=== PATIENT | male | born 1940 | race Caucasian/White ===

== ENCOUNTER 2023-12-17 07:39 | Day surgery (SDC) | payer MEDICARE, OTHER, SELFPAY | END 2023-12-17 10:53 | disposition home or self-care (01) | LOC: CATH 07:39 | PROVIDERS: ATTENDING PHYSICIAN Internal Medicine Cardiovascular Disease; FAMILY PHYSICIAN Nurse Practitioner; OTHER PHYSICIAN Internal Medicine | DX: I08.3 Combined rheumatic disorders of mitral, aortic and tricuspid valves (principal); I70.0 Atherosclerosis of aorta; Z95.3 Presence of xenogenic heart valve | CPT/HCPCS: 93312; 93320; 93325 ==

== ENCOUNTER → 2024-02-11 11:33 | Outpatient (REF) | payer MEDICARE, OTHER, SELFPAY ==
[2024-02-11 12:47] LABS: Blood Urea Nitrogen 38 mg/dl (9-20); Calcium 9.9 mg/dl (8.4-10.2); Carbon Dioxide 34 mmol/L (22-30); Chloride 97 mmol/L (98-107); Glucose 76 mg/dl (70-99); Potassium 4.4 mmol/L (3.5-5.1); Sodium 142 mmol/L (135-145); eGFR > 60.00
== END ==
LOC: REG 11:33
PROVIDERS: ATTENDING PHYSICIAN Internal Medicine Interventional Cardiology; FAMILY PHYSICIAN Nurse Practitioner
DX: I10 Essential (primary) hypertension (principal)
CPT/HCPCS: 36415; 80048

== ENCOUNTER → 2024-02-12 08:47 | Outpatient (REF) | payer MEDICARE, OTHER, SELFPAY | LOC: RAD 08:47 | PROVIDERS: ATTENDING PHYSICIAN Internal Medicine Interventional Cardiology; FAMILY PHYSICIAN Nurse Practitioner; OTHER PHYSICIAN Internal Medicine; REFERRING PHYSICIAN Nurse Practitioner Acute Care | DX: I36.1 Nonrheumatic tricuspid (valve) insufficiency (principal); I51.3 Intracardiac thrombosis, not elsewhere classified; I34.0 Nonrheumatic mitral (valve) insufficiency | CPT/HCPCS: 75572; Q9967 ==

== ENCOUNTER 2024-03-23 05:25 | Inpatient (IN) | payer MEDICARE, OTHER, SELFPAY ==
[2024-03-14 12:46] LABS: % Basophils 0.8 % (0-2); % Eosinophils 3.6 % (0-6); % Immature Granulocytes 0.2 % (0-0.5); % Lymphocytes 17.9 % (20.5-51.1); % Neutrophils 68.5 % (42.2-75.2); Absolute Basophils 0.1 10^3/uL (0-0.2); Absolute Eosinophils 0.2 10^3/uL (0-0.7); Absolute Lymphocytes 1.2 10^3/uL (1.2-3.4); Absolute Monocytes 0.6 10^3/uL (0.1-0.6); Absolute Neutrophils 4.6 10^3/uL (1.4-6.5); Hematocrit 43.8 % (39.0-52.0); Mean Corpuscular Hgb 28.1 pg (27.0-31.0); Nucleated Red Blood Cells % 0 % (-); Platelet Count 174 10^3/uL (130-400); Red Blood Cell Count 4.98 10^6/uL (4.70-6.10); Red Cell Dist. Width 15.9 % (11.5-14.5); White Blood Cell Count 6.7 10^3/uL (4.8-10.8)
[2024-03-14 12:49] LABS: INR 1.23; PT 15.8 Sec (11.4-14.6)
[2024-03-14 12:51] LABS: APTT 37.7 Sec (23.4-35.0)
[2024-03-14 13:16] LABS: ALT (SGPT) 17 U/L (0-50); AST (SGOT) 23 U/L (17-59); Albumin 4.3 g/dl (3.5-5.0); Alkaline Phosphatase 121 U/L (38-126); Blood Urea Nitrogen 33 mg/dl (9-20); Calcium 9.8 mg/dl (8.4-10.2); Carbon Dioxide 32 mmol/L (22-30); Chloride 99 mmol/L (98-107); Direct Bilirubin 0.1 mg/dl (0.0-0.4); Glucose 102 mg/dl (70-99); Potassium 4.5 mmol/L (3.5-5.1); Sodium 140 mmol/L (135-145); Total Bilirubin 0.9 mg/dl (0.2-1.3); Total Protein 6.9 g/dl (6.3-8.2); eGFR > 60.00
[2024-03-14 13:33] LABS: Urine Albumin Negative (Neg - Trace); Urine Bilirubin Negative (Negative); Urine Character Clear (Clear); Urine Color Yellow; Urine Glucose Negative (Negative); Urine Ketone Negative (Negative); Urine Leukocyte Trace (Negative); Urine Nitrite Negative (Negative); Urine Occult Blood Negative (Negative); Urine Urobilinogen Negative (Neg - 1+)
[2024-03-14 13:37] VITALS: BMI 33.6
[2024-03-14 13:56] LABS: Glycohemoglobin (HgbA1c) 5.5 % (4.0-5.6)
[2024-03-14 13:56] LABS: Urine Red Blood Cell 0-2 /HPF (0-2)
--- NOTE | 2024-03-14 14:16 | CM ---
Chart reviewed. Met with the patient and son in PAT. Patient is independent of ADLS, lives with his in a [address], 1 [facility], ambulates with a RW and SPC. Reviewed preoperative and postoperative instructions and restrictions, along with showering
guidelines. Gave patient 2 soaps. Patient is agreeable to a home visit by CT Transitional RN. Plan is for the patient to return home with CT Transitional RN.
[2024-03-23] VITALS (16 sets, daily range): BP systolic 103–153; BP diastolic 66–91; BMI 32.8
[2024-03-23] MEDS: BACTROBAN 2% OINTMENT 1 APPLIC NASAL (06:39)
[2024-03-23 08:45] LABS: ACT-LR - POC 274 Seconds (116-155)
[2024-03-23 08:53] LABS: ACT-LR - POC 281 Seconds (116-155)
[2024-03-23 09:04] LABS: ACT-LR - POC 294 Seconds (116-155)
[2024-03-23 09:13] LABS: ACT-LR - POC 322 Seconds (116-155)
[2024-03-23 09:42] LABS: ACT-LR - POC 244 Seconds (116-155)
[2024-03-23 09:51] LABS: ACT-LR - POC 289 Seconds (116-155)
[2024-03-23 10:01] LABS: ACT-LR - POC 260 Seconds (116-155)
[2024-03-23 10:06] LABS: ACT-LR - POC 261 Seconds (116-155)
[2024-03-23 10:15] LABS: ACT-LR - POC 302 Seconds (116-155)
[2024-03-23 10:46] LABS: ACT-LR - POC 292 Seconds (116-155)
[2024-03-23 10:56] LABS: ACT-LR - POC 353 Seconds (116-155)
--- NOTE | 2024-03-23 12:11 | PTCARENOTE ---
Received pt from laborer rags team at 1205 pm, sleepy but arousable to voice. V paced on monitor 70's. Rt radial A line transducing, line leveled, recalibrated, and flushed. Rt groin site c,d,i. dp pulses via doppler, Will monitor.
--- NOTE | 2024-03-23 12:11 | ITS.CL.PN ---
Grinder Dresser - Procedure Note
Procedure
Procedure Note:
TRANSCATHETER EDGE - TO - EDGE MITRAL VALVE REPAIR (COLIN)/MITRACLIP REPORT
Date: 03/23/2024
Referring: Aleksandr Schwartz M.D.
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
Procedure(s): Transcatheter mitral valve edge to edge repair/MitraClip using one NTW and one XTW MitraClip.
Preprocedure MR severity: Severe, 3.5+.
Postprocedure MR severity: Mild, 1+.
Operators: Parish Ross DO, Evangelina Ibarra M.D.
ARGENIS Family Practice Nurse Practitioner(s): Eduardo Mcneill M.D., Ph.D.
Anesthesia: GETA provided by the anesthesia staff.
Estimated Blood Loss: 80 cc.
Complications: None.
Condition: Stable.
PROCEDURE:
The patient was brought to the cardiac catheterization lab and anesthetized by the anesthesiology staff. A transesophageal probe was placed and preliminary echocardiography was performed. The patient was prepped and draped in standard sterile
fashion. The right common femoral vein was accessed using a modified Seldinger technique with a micropuncture kit under ultrasound guidance. The vein was dilated with an 8 Italian dilator then preclosed with a Perclose percutaneous suture. And 8
Italian sheath was placed in the femoral vein. Heparin 8000 units was given
The [employer] VersaCross system was prepped on the back table. The J-wire for the versa cross was advanced into the superior vena cava and the 8 Italian sheath was removed. The transseptal sheath was advanced over the wire and into the superior vena
cava. The J-wire was removed and the versa cross wire was advanced to the distal tip of the sheath, but remained within the dilator. This sheath was positioned in the interatrial septum with confirmed position on ARGENIS. Transseptal puncture was
performed using electrocautery through the wire and the sheath was advanced into the left atrium. ACT was confirmed above 250 seconds. Oxygen saturation confirmed presence in the left atrium.
The MitraClip steerable sheath was prepped on the back table. The [place] sheath was withdrawn keeping the versa cross wire in the left atrium. The femoral vein was serially dilated and the steerable sheath was advanced through the vein, easily
crossing into the left atrium. Once we had satisfactory purchase of the sheath inside the left atrium the dilator and versa cross wire were removed and the steerable sheath was completely de-aired and flushed.
A(n) XTW MitraClip Delivery System was prepped on the back table. The clip was advanced through the steerable sheath and into the left atrium. The clip was oriented and advanced subvalvular to the mitral valve. In spite of multiple attempts, we
were unable to adequately grasp both the anterior and posterior leaflets with some rolling of the posterior leaflet. We felt that the leaflet may be too short for an XTW MitraClip. The XTW clip was replaced with an NTW clip and we reapproached the
valve.
The NTW was advanced subvalvular, lateral to the original XTW clip position. The NTW clip was pulled back with satisfactory position of the anterior and posterior leaflets on the clip arms. Once we were satisfied with with position, the grippers
were lowered and the clip arms were tightened to 60 degrees. This demonstrated good position and clip stability. The clip was fully closed demonstrating excellent sales and events coordinator of both the anterior and posterior leaflet. Mitral regurgitation remained
moderate to severe on the medial aspect of the valve, but we were most satisfied with the ability of the clip to graft the posterior leaflet. Transvalvular gradient = 2 mmHg. We were satisfied with these preliminary results, recognizing that we
would likely need a second MitraClip and the NTW clip was deployed. The delivery system was removed from the steerable sheath.
The mitral valve was reevaluated. Mitral valve regurgitation was now graded at moderate to severe, with eccentric mitral regurgitation immediately medial to the NTW clip.
Initially, we considered placing an NT clip in this area, however we opted to reattempt the XTW clip as it had already been opened and the mitral valve had not been stabilized. The XTW clip was advanced through the steerable sheath and into the
left atrium. The clip was oriented and advanced into the subvalvular apparatus, medial to the NTW clip. We took meticulous care to make sure that there was no significant contact between the NTW and XTW clips. After the clip was subvalvular, we
released some of the M knob tension to allow the XTW clip to abut the NTW clip. The clip was pulled back to allow the anterior and posterior leaflets to fall into the clip arms, which they were now able to do with relative ease. Once we were
satisfied with the clip position, the grippers were lowered and the clip arms were tightened to 60 degrees. This demonstrated good position and clip stability. Echo interrogation showed that the clip was directly in the mitral regurgitation jet.
The clip was fully closed demonstrating good sales and events coordinator of both the anterior and posterior leaflet with a significant reduction in mitral regurgitation.
Echocardiographic interrogation of the mitral valve showed a mean gradient of 4 mmHg with a valve area of 2.7-2.8 cm�. At this point, we were satisfied with this clip position. The XTW clip was released. The delivery system was removed from the
steerable sheath. The mitral valve was reevaluated, now showing mild, eccentric mitral valve regurgitation with a mean gradient of 5 mmHg.
At this point, we were satisfied with our results. The steerable sheath was withdrawn into the right atrium, then negative tension was applied to straighten the catheter. The steerable sheath was withdrawn and the Perclose percutaneous suture was
tightened with good hemostasis.
The patient tolerated the procedure well, was brought out of anesthesia and transferred to the CVICU in stable condition.
IMPLANT(S)/POSITION:
1. NTW MitraClip on lateral A2/P2.
2. XTW MitraClip on central A2/P2.
RADIATION:
Dose (mGy): 1036.94
DAP (cm2.Gy): 130.37
Fluoroscopy time (minutes): 32.6
VALVE HEMODYNAMICS:
Preoperative
MR severity (0-4): 3.5+
Transmitral gradient (mmHg): 2
Postoperative
MR severity (0-4): 1+
Transmitral gradient (mmHg): 5
CONCLUSIONS:
1. Severe mixed/degenerative mitral mitral valve regurgitation s/p successful COLIN using 2 MitraClips with reduction in mitral regurgitation from severe (3.5+) to mild (1+) and a final mean transmitral gradient of 5 mmHg.
2. Acute on chronic heart failure (mean left atrial pressure = 28 mmHg, V wave = 42 mmHg).
RECOMMENDATIONS:
1. Routine post procedure care.
2. Transthoracic echocardiogram ordered for tomorrow morning.
3. Antithrombotic therapy with apixaban indefinitely for atrial fibrillation.
4. Furosemide 40 mg IV given at the end of the case.
5. Guideline directed medical therapy as hemodynamics will tolerate.
6. Repeat echocardiogram tomorrow morning to document clip stability.
7. Repeat echocardiogram in 30 days, then again at 1 year for routine surveillance.
Parish Ross DO, FACP, FACC
Copy to: Aleksandr Schwartz M.D., MONICA Mo
[2024-03-23] MEDS: ANCEF 10 IV ×2 (12:35)
[2024-03-23] MEDS: DUONEB 3 ML INH ×2 (13:03→21:34)
--- NOTE | 2024-03-23 14:04 | PTCARENOTE ---
1330 Rt groin site oozing. Dressing saturated, removed, and manual pressure held x 15 minutes, Dr Ibarra in to assess. VSS. Remains on bedrest.
[2024-03-23] MEDS: ANCEF 5 IV (14:18)
--- NOTE | 2024-03-23 14:28 | CM ---
Chart reviewed. Patient is in the OR today. Patient is independent of ADLS, lives with his in a 2 [address], 1st floor set up, ambulates with a RW and SPC. Plan is for the patient to return home with CT Transitional RN. CM to follow
--- NOTE | 2024-03-23 15:50 | ITS.CL.PN ---
Data Governance Analyst - Procedure Note
Procedure
Procedure Note:
TRANSCATHETER EDGE - TO - EDGE MITRAL VALVE REPAIR (COLIN)/MITRACLIP REPORT
Date: March 23, 2024
Referring: Jesus Manuel Schwartz MD
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
Procedure(s): Transcatheter mitral valve edge to edge repair (MitraClip) using one XTW and one NTW Mitraclip
Preprocedure MR severity: Severe
Postprocedure MR severity: Mild
Operators: Evangelina Ibarra MD and Parish Ross DO
ARGENIS Auto Motor Mechanic(s): Eduardo Mcneill M.D.
Anesthesia: GETA provided by the anesthesia staff.
Estimated Blood Loss: Minimal
Complications: None.
Condition: Stable.
PROCEDURE:
The patient was brought to the cardiac catheterization lab and anesthetized by the anesthesiology staff. A transesophageal probe was placed and preliminary echocardiography was performed. The patient was prepped and draped in standard sterile
fashion. The right common femoral vein was accessed using a modified Seldinger technique with a micropuncture kit under ultrasound guidance. The vein was dilated with an 8 [place] dilator then pre-closed with a Perclose percutaneous suture. And 8
[place] sheath was placed in the femoral vein. Heparin was given to maintain therapeutic ACT throughout the case.
The [employer] VersaCross system was prepped on the back table. The J-wire for the versa cross was advanced into the superior vena cava and the 8 [place] sheath was removed. The transseptal sheath was advanced over the wire and into the superior vena
cava. The J-wire was removed and the versa cross wire was advanced to the distal tip of the sheath, but remained within the dilator. This sheath was positioned in the interatrial septum with confirmed position on ARGENIS. Transseptal puncture was
performed using electrocautery through the wire and the sheath was advanced into the left atrium. Oxygen saturation of 99% confirmed presence in the left atrium.
The MitraClip steerable sheath was prepped on the back table. The [place] sheath was withdrawn keeping the versa cross wire in the left atrium. The femoral vein was serially dilated and the steerable sheath was advanced through the vein, easily
crossing into the left atrium. Once we had satisfactory purchase of the sheath inside the left atrium the dilator and versa cross wire were removed and the steerable sheath was completely de-aired and flushed.
A(n) XTW MitraClip Delivery System was prepped on the back table. The clip was advanced through the steerable sheath and into the left atrium. The clip was oriented and advanced subvalvular to the mitral valve. Despite multiple attempts, we
persistently were unable to adequately grasp the posterior leaflet resulting in significant mitral regurgitation being left behind. At this point, we decided to replace the XTW clip with an NTW clip.
The NTW was advanced subvalvular, lateral to the original XTW clip position. The NTW clip was pulled back with satisfactory position of the anterior and posterior leaflets on the clip arms. Once we were satisfied with with position, the grippers
were lowered and the clip arms were tightened to 60 degrees. This demonstrated good position and clip stability. The clip was fully closed demonstrating excellent shot dropper of both the anterior and posterior leaflet. Mitral regurgitation remained
moderate to severe on the medial aspect of the valve, but we were most satisfied with the ability of the clip to graft the posterior leaflet. Transvalvular gradient at this point was 2 mmHg. We were satisfied with these preliminary results, with
plan to do a second clip and therefore, NTW clip was deployed. The delivery system was removed from the steerable sheath.
The mitral valve was reevaluated. Mitral valve regurgitation was now graded at moderate to severe, with eccentric mitral regurgitation immediately medial to the NTW clip.
We decided to reattempt the XTW clip given the degree of mitral regurgitation left behind. The XTW clip was advanced through the steerable sheath and into the left atrium. The clip was oriented and advanced into the subvalvular apparatus, medial
to the NTW clip. We made sure there was no significant contact between the NTW and XTW clips. After the clip was subvalvular, we pulled back to allow the anterior and posterior leaflets to fall into the clip arms. Once we were satisfied with the
clip position, the grippers were lowered and the clip arms were tightened to 60 degrees. This demonstrated good position and clip stability. The clip was fully closed demonstrating good shot dropper of both the anterior and posterior leaflet with a
significant reduction in mitral regurgitation.
Echocardiographic assesment of the mitral valve showed a mean gradient of 4 mmHg with a valve area of 2.7-2.8 cm�. At this point, we were satisfied with this clip position. The XTW clip was released. The delivery system was removed from the
steerable sheath. The mitral valve was reevaluated, now showing mild, eccentric mitral valve regurgitation with a mean gradient of 5 mmHg.
At this point, we were satisfied with our results. The steerable sheath was withdrawn into the right atrium, then negative tension was applied to straighten the catheter. The steerable sheath was withdrawn and the Perclose percutaneous suture was
tightened with good hemostasis.
The patient tolerated the procedure well, was brought out of anesthesia and transferred to the CVICU in stable condition.
IMPLANT(S)/POSITION:
1. NTW MitraClip on lateral A2/P2.
2. XTW MitraClip on central A2/P2.
RADIATION: Dose (mGy):1036.94; DAP (cm2.Gy):130.37; Fluoroscopy time (minutes):32.6
VALVE HEMODYNAMICS:
Preoperative
MR severity (0-4): 3.5+
Transmitral gradient (mmHg): 2
Postoperative
MR severity (0-4): 1+
Transmitral gradient (mmHg): 5
CONCLUSIONS:
1. Severe mixed degenerative mitral mitral valve regurgitation s/p successful COLIN using 2 MitraClips (XTW and NTW) with reduction in mitral regurgitation from severe (3.5+) to mild (1+) and a final mean transmitral gradient of 5 mmHg.
2. Acute on chronic heart failure (mean left atrial pressure = 28 mmHg, V wave = 42 mmHg).
RECOMMENDATIONS:
1. Routine post procedure care.
2. Transthoracic echocardiogram ordered for tomorrow morning to document clip stability
3. Antithrombotic therapy with apixaban indefinitely for atrial fibrillation starting tomorrow once groins stable.
4. Furosemide 40 mg IV given at the end of the case.
5. Guideline directed medical therapy as hemodynamics will tolerate.
6. Repeat echocardiogram in 30 days, then again at 1 year for routine surveillance.
Copy to: Aleksandr Schwartz M.D.
Evangelina Ibarra MD, [facility], [facility]
[2024-03-23] MEDS: LASIX 40 MG IV (16:06)
[2024-03-23] MEDS: CRESTOR 20 MG PO (17:25)
--- NOTE | 2024-03-23 17:36 | PTCARENOTE ---
Assist x 1 oob using rolling walker. Rt groin site c,d,i. Linens changed. Eating dinner w/o issue.
--- NOTE | 2024-03-23 19:30 | PTCARENOTE ---
received pt from previous rn. Pt AAOx3, 100% v paced at 70. pox 94% on RA. doppler B/L pedal pulses. lungs sounds diminished. voids spontaneously, +bs, right groin site c/d/i, plan of care discussed questions encouraged.
[2024-03-23 22:41] LABS: Blood Urea Nitrogen 42 mg/dl (9-20); Calcium 9.4 mg/dl (8.4-10.2); Carbon Dioxide 30 mmol/L (22-30); Chloride 99 mmol/L (98-107); Estimated Creatinine Clearance 52 ml/min; Glucose 138 mg/dl (70-99); Magnesium 2.5 mg/dl (1.6-2.3); Potassium 4.1 mmol/L (3.5-5.1); Sodium 136 mmol/L (135-145); eGFR 54.51
--- NOTE | 2024-03-23 23:39 | PTCARENOTE ---
pt 100% v paced, VSS, assessment remains unchanged
[2024-03-24] VITALS: BP 126/77
[2024-03-24 02:42] VITALS: BP 135/79
[2024-03-24 04:00] VITALS: BP 146/77
--- NOTE | 2024-03-24 04:34 | PTCARENOTE ---
routine labs and EKG obtained, VSS, 100% v paced w/ PVCs, assessment remains unchanged
[2024-03-24 04:48] LABS: Hematocrit 39.2 % (39.0-52.0); Hemoglobin 12.5 g/dL (13.0-18.0); Mean Corp Hgb Conc. 31.9 g/dL (33.0-37.0); Mean Corpuscular Hgb 28.4 pg (27.0-31.0); Mean Corpuscular Volume 89.1 fL (80.0-94.0); Mean Platelet Volume 10.5 fL (7.4-10.4); Platelet Count 154 10^3/uL (130-400); Red Cell Dist. Width 15.7 % (11.5-14.5); White Blood Cell Count 10.2 10^3/uL (4.8-10.8)
[2024-03-24 05:03] LABS: Blood Urea Nitrogen 41 mg/dl (9-20); Calcium 9.4 mg/dl (8.4-10.2); Carbon Dioxide 28 mmol/L (22-30); Chloride 100 mmol/L (98-107); Estimated Creatinine Clearance 56 ml/min; Glucose 125 mg/dl (70-99); Magnesium 2.5 mg/dl (1.6-2.3); Potassium 4.2 mmol/L (3.5-5.1); Sodium 138 mmol/L (135-145); eGFR > 60.00
[2024-03-24 06:00] VITALS: BMI 33.4
--- NOTE | 2024-03-24 06:10 | W.PN.ANS.POP ---
Anesthesia Post Operative
- Anesthesia Post Op Note
Vital Signs Stable-See Nursing Note: Yes
Airway Patent: Yes
Adequate Pain Control: Yes
Change in Mental Status: No
Current Postoperative Nausea & Vomiting: No
Anesthesia Complications: No
General Anesthetic Recall: No
Unplanned Admission: No
Post Op Hydration Adequate: Yes
[2024-03-24] MEDS: DUONEB 3 ML INH ×2 (08:20→13:58)
[2024-03-24 08:54] VITALS: BP 126/66
[2024-03-24] MEDS: FLOMAX 0.4 MG PO (08:54)
[2024-03-24] MEDS: LASIX 40 MG IV (08:54)
[2024-03-24] MEDS: PROTONIX 40 MG PO (08:54)
[2024-03-24] MEDS: ALDACTONE 25 MG PO (08:54)
[2024-03-24] MEDS: COZAAR 25 MG PO (08:54)
--- NOTE | 2024-03-24 09:05 | PTCARENOTE ---
assumed care of pt from previous shift RN, V paced on tele, VSS, + peripheral pulses, chronic edema noted. Lungs diminished, pox 95-96% on RA. +bs, tolerating PO intake, voids spontaneously. PIV flushes easily. echo being done at bedside. plan of
care reviewed and questions encouraged.
--- NOTE | 2024-03-24 10:17 | W.PN.CARDCBS ---
Addendum entered and electronically signed by Umang Sullivan MD 03/24/24 14:28:
patient seen and examined
agree with NAIL MACHINE OPERATOR note and assessment
agree with NAIL MACHINE OPERATOR plan
exam:
heent ncat
jvp 6
cor regular (paced) soft 1-6 MARIELY at axilla
lungs ctab
abd soft nt nd
no ext edema
aao x3
non focal neurologically
Impression:
Symptomatic severe mixed degenerative mitral valve regurgitation
post COLIN using 2 MitraClip 03/23/24
Acute on chronic HFpEF 50-55%
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
hemopericardium effusion post tap 09/2023
PAF on chronic OAC
SUSAN
TAA
HLD
HTN
BPH
COPD
lung cancer
Plan:
post COLIN MR from 3.5+ to 1+
groin stable
tele Vpaced with PVC's
Acute HF LA pressure 28, IV lasix 40mg bid, will switch back to PO torsemide at d/c
f/u ECHO this am pending-MR is 1+ and markedly improved post mitraclip. EF% slightly reduced will discuss with Dr. Efren muro echo in 3 months
Resume OAC Eliquis tonight
HFpEF continue losartan, and spironolactone
Activity restrictions reviewed
f/u Dr. Schwartz in 2-4 weeks
home after Echo resulted
Original Note:
Today's Communication / Plan
-
post COLIN
f/u ECHO this am
continue IV diuresis while in hospital for acute on chronic HFpEF
Impression / Plan
-
PCP: MONICA Mo
CDY: Jesus Manuel Schwartz MD
Impression:
Symptomatic severe mixed degenerative mitral valve regurgitation
post COLIN using 2 MitraClip 03/23/24
Acute on chronic HFpEF 50-55%
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
hemopericardium effusion post tap 09/2023
PAF on chronic OAC
SUSAN
TAA
HLD
HTN
BPH
COPD
lung cancer
Plan:
post COLIN MR from 3.5+ to 1+
groin stable
tele Vpaced with PVC's
Acute HF LA pressure 28, IV lasix 40mg bid, will switch back to PO torsemide at d/c
f/u ECHO this am pending
Resume OAC Eliquis tonight
HFpEF continue losartan, and spironolactone
Activity restrictions reviewed
f/u Dr. Schwartz in 2-4 weeks
home after Echo resulted
CONCLUSIONS:
1. Severe mixed degenerative mitral mitral valve regurgitation s/p successful COLIN using 2 MitraClips (XTW and NTW) with reduction in mitral regurgitation from severe (3.5+) to mild (1+) and a final mean transmitral gradient of 5 mmHg.
2. Acute on chronic heart failure (mean left atrial pressure = 28 mmHg, V wave = 42 mmHg).
Progress Note - Laundry Helper
Subjective
Date of Service: March 24, 2024
denies cp, sob
Objective
Labs:
03/24/24 04:26
03/24/24 04:26
Labs
Hgb 12.5 g/dL (13.0-18.0) L 03/24/24 04:26
Hct 39.2 % (39.0-52.0) 03/24/24 04:26
Plt Count 154 10^3/uL (130-400) 03/24/24 04:26
PT 15.8 Sec (11.4-14.6) H 03/14/24 12:14
INR 1.23 03/14/24 12:14
APTT 37.7 Sec (23.4-35.0) H 03/14/24 12:14
Sodium 138 mmol/L (135-145) 03/24/24 04:26
Potassium 4.2 mmol/L (3.5-5.1) 03/24/24 04:26
BUN 41 mg/dl (9-20) H 03/24/24 04:26
Creatinine 1.2 mg/dL (0.7-1.3) 03/24/24 04:26
Glucose 125 mg/dl (70-99) H 03/24/24 04:26
Vital Signs and I&O:
Vital Signs
Temp Pulse Resp BP Pulse Ox
98.2 F 83 18 126/66 95
03/24/24 08:54 03/24/24 09:00 03/24/24 08:54 03/24/24 08:54 03/24/24 09:24
Vital Signs
Temp Pulse Resp BP Pulse Ox
98.2 F 83 18 126/66 95
03/24/24 08:54 03/24/24 09:00 03/24/24 08:54 03/24/24 08:54 03/24/24 09:24
Intake & Output
03/22/24 03/23/24 03/24/24 03/25/24
06:59 06:59 06:59 06:59
Intake Total 460 / 460 100 / 100
Output Total 1550 / 1550
Balance -1090 / -1090 100 / 100
Physical Exam
Physical Exam
NAD< AOX3
S1, S2, RRR, 2/6 MARIELY
CTAB< non labored
SNTND bsx4
R fem site c/d/i, no HT, soft, mild ecchymosis
[2024-03-24 11:29] VITALS: BP 127/72
--- NOTE | 2024-03-24 11:31 | PTCARENOTE ---
VSS, paced rhythm maintained on tele. pt denies pain.
[2024-03-24 15:00] VITALS: BP 125/66
--- NOTE | 2024-03-24 16:12 | PTCARENOTE ---
IV lines and tele monitor removed. Assisted pt w getting dressed. With at bedside discharge instructions, medication list and follow up appointments reviewed w the pt and his , questions encouraged.
--- NOTE | 2024-03-24 17:02 | W.DS.TRANS ---
DC Summary - Roastmaster
-
Discharge Instructions:
Discharge Diagnosis/Procedures COLIN-Mitraclip
Diet 2 Gram Sodium,Low Cholesterol
Activity As tolerated
Driving Restrictions No driving for 1 week
Bathing Restrictions OK to Shower
Others Tests Follow Up Echocardiogram: 02/20/2025 @ 11:20 at
[facility]
Other Services Cardiac Rehab
Specialty Instructions Weigh Daily
Instructions:
Stand-Alone Forms: DC Instructions- Cath/EP Lab
Changes to Home Medications: No
Discharge Medications:
DC Medications w/original date entered in [place] [employer]
fluticasone prop.50 mcg spray,suspen-sod.chloride 0.9% nasal spray kit 1 spray intranasal DAILY Allergies 12/17/23
ipratropium 0.5 mg-albuterol 3 mg (2.5 mg base)/3 mL nebulization soln 3 ml inhalation TID Lung/Breathing Issues 12/17/23
losartan 25 mg tablet 25 mg PO DAILY Blood Pressure 12/17/23
omeprazole 20 mg capsule,delayed release 20 mg PO DAILY Gastrointestinal Issue 12/17/23
rosuvastatin 20 mg tablet 20 mg PO DAILY High Cholesterol 12/17/23
tamsulosin 0.4 mg capsule 0.4 mg PO DAILY Urinary Issue 12/17/23
torsemide 40 mg tablet 60 mg PO BID Fluid Retention/Swelling 12/17/23
vit C 226 mg-vit E 90 mg-copper 0.8 mg-zinc oxide-lutein 5 mg capsule (PreserVision Lutein) 1 cap PO BID Supplement 12/17/23
acetaminophen 500 mg tablet 1,000 mg PO BID Pain 03/23/24
apixaban 5 mg tablet (Eliquis) 5 mg PO BID Blood Clot Prevention/Tx 03/23/24
multivitamin 1 tab PO DAILY Supplement 03/23/24
spironolactone 25 mg tablet 25 mg PO DAILY Fluid Retention/Swelling 03/23/24
Home Medication Changes
Pending Results: No
== END 2024-03-24 16:28 | disposition home or self-care (01) | DRG 266 ==
LOC: CVICU 05:25
PROVIDERS: Internal Medicine; Nurse Practitioner Adult Health; Physician Assistant Medical; ADMITTING PHYSICIAN Internal Medicine Cardiovascular Disease; ATTENDING PHYSICIAN Internal Medicine Interventional Cardiology
PROC: B24BZZ4 Ultrasonography of Heart with Aorta, Transesophageal (ICD-10-PCS; 2024-03-23)
PROC: 02UG3JZ Supplement Mitral Valve with Synthetic Substitute, Percutaneous Approach (ICD-10-PCS; 2024-03-23)
DX: I34.0 Nonrheumatic mitral (valve) insufficiency (principal); Z00.6 Encounter for examination for normal comparison and control in clinical research program; I50.33 Acute on chronic diastolic (congestive) heart failure; I48.0 Paroxysmal atrial fibrillation; G47.33 Obstructive sleep apnea (adult) (pediatric); E78.5 Hyperlipidemia, unspecified; I11.0 Hypertensive heart disease with heart failure; N40.0 Benign prostatic hyperplasia without lower urinary tract symptoms; I71.20 Thoracic aortic aneurysm, without rupture, unspecified; J44.9 Chronic obstructive pulmonary disease, unspecified; Z79.01 Long term (current) use of anticoagulants; Z85.118 Personal history of other malignant neoplasm of bronchus and lung; Z95.0 Presence of cardiac pacemaker; Z95.3 Presence of xenogenic heart valve
CPT/HCPCS: 33418; 33419; 36415; 71046; 80048; 80076; 81003; 81015; 82330; 83036; 83735; 85025; 85027; 85347; 85610; 85730; 86850; 86900; 86901; 86920; 87070; 93005; 93306; 93355; 94640; C1760; C1894

== ENCOUNTER → 2024-05-19 13:52 | Outpatient (REF) | payer MEDICARE, OTHER, SELFPAY | LOC: RCS 13:52 | PROVIDERS: ATTENDING PHYSICIAN Internal Medicine Interventional Cardiology; FAMILY PHYSICIAN Nurse Practitioner; OTHER PHYSICIAN Internal Medicine | DX: I34.0 Nonrheumatic mitral (valve) insufficiency (principal); I36.1 Nonrheumatic tricuspid (valve) insufficiency | CPT/HCPCS: 93306 ==

== ENCOUNTER → 2024-07-14 10:01 | Outpatient (REF) | payer MEDICARE, OTHER, SELFPAY ==
[2024-07-14 11:06] LABS: % Basophils 0.9 % (0-2); % Eosinophils 6.8 % (0-6); % Immature Granulocytes 0.2 % (0-0.5); % Lymphocytes 10.3 % (20.5-51.1); % Monocytes 12.2 % (1.7-9.3); % Neutrophils 69.6 % (42.2-75.2); Absolute Basophils 0.1 10^3/uL (0-0.2); Absolute Eosinophils 0.6 10^3/uL (0-0.7); Absolute Lymphocytes 0.9 10^3/uL (1.2-3.4); Absolute Monocytes 1.1 10^3/uL (0.1-0.6); Absolute Neutrophils 6.4 10^3/uL (1.4-6.5); Hematocrit 43.4 % (39.0-52.0); Mean Corp Hgb Conc. 32.3 g/dL (33.0-37.0); Mean Corpuscular Hgb 28.7 pg (27.0-31.0); Mean Corpuscular Volume 88.9 fL (80.0-94.0); Nucleated Red Blood Cells % 0 % (-); Platelet Count 205 10^3/uL (130-400); Red Blood Cell Count 4.88 10^6/uL (4.70-6.10); Red Cell Dist. Width 13.2 % (11.5-14.5); White Blood Cell Count 9.2 10^3/uL (4.8-10.8)
[2024-07-14 11:22] LABS: INR 1.23; PT 16.1 Sec (11.4-14.6)
[2024-07-14 11:33] LABS: ALT (SGPT) 15 U/L (0-50); AST (SGOT) 20 U/L (17-59); Albumin 3.8 g/dl (3.5-5.0); Alkaline Phosphatase 144 U/L (38-126); Blood Urea Nitrogen 40 mg/dl (9-20); Calcium 9.9 mg/dl (8.4-10.2); Carbon Dioxide 34 mmol/L (22-30); Chloride 98 mmol/L (98-107); Glucose 98 mg/dl (70-99); Magnesium 2.5 mg/dl (1.6-2.3); Sodium 141 mmol/L (135-145); Total Bilirubin 0.7 mg/dl (0.2-1.3); Total Protein 6.6 g/dl (6.3-8.2); eGFR 54.51
== END ==
LOC: SDSPAT 10:01
PROVIDERS: ATTENDING PHYSICIAN Internal Medicine Cardiovascular Disease; FAMILY PHYSICIAN Nurse Practitioner; OTHER PHYSICIAN Internal Medicine
DX: I50.22 Chronic systolic (congestive) heart failure (principal); I44.2 Atrioventricular block, complete
CPT/HCPCS: 36415; 80053; 83735; 85025; 85610; 93005

== ENCOUNTER 2024-07-27 11:16 | Day surgery (SDC) | payer MEDICARE, OTHER, SELFPAY ==
[2024-07-14 10:39] VITALS: BMI 39.2
[2024-07-27] VITALS (10 sets, daily range): BP systolic 113–152; BP diastolic 65–105; BMI 39.2
--- NOTE | 2024-07-27 15:47 | ITS.CL.PACE ---
[employer] - Pacemaker Implant
Pacemaker Implant
Procedure Report:
Primary Physician: Dr Juanita Hwang
Primary Computer Language Coder: Dr Aleksandr Schwartz
Procedure Date: 07/27/2024
Name of procedure:
1. Upgrade single chamber pacemaker to a Biventricular Pacemaker
2. Coronary Sinus Venography
3. Subclavian venography
4. Pocket Revision
History:
1. Patient is a very pleasant 83-year-old male with a past medical history significant for hypertension, aortic root dilation, valvular heart disease, mixed lipidemia, permanent atrial fibrillation, complete heart block status post single-chamber
pacemaker 2023, aortic stenosis status post TAVR, severe MR status post MitraClip x 2, nonischemic cardiomyopathy with EF 35-40% who is 100% RV paced due to complete heart block on goal-directed medical therapy. Due to patient's 100% RV pacing and
reduced LVEF, patient to benefit from cardiac resynchronization therapy.
2. See H&P for complete history.
Methods:
After informed consent was obtained, the patient was brought to the EP laboratory in a postabsorptive, nonsedated state. Peripheral IV access was established. Prophylactic antibiotics were administered prior to incision. Continuous ECG, blood
pressure, and pulse oximetry were initiated. Cardioversion patch electrodes were placed on the patient's chest and back. A grounding patch was applied to the skin. Sedation was administered by anesthesia services.
In order to define the extrathoracic portion of the subclavian vein and exclude significant venous obstruction or anomalous anatomy, subclavian venography was performed prior to the procedure. Using the patient's left peripheral IV, contrast was
injected and images were recorded. The left subclavian vein and SVC were found to be widely patent.
The left chest was prepared and draped in a sterile fashion. A time-out was performed. Local anesthesia was injected in the subcutaneous tissue in the infraclavicular area. An incision was made into the chronic scar. With cautious attention to
the lead, the subcutaneous tissue was dissected the level of the device capsule. The capsule was opened. Device only remained connected as patient was dependent on single-chamber pacemaker. The leads were inspected and found to be free of visible
defect.
Under fluoroscopic guidance and with the assistance of the images from the venogram, a venipuncture was made using micropuncture and modified Seldinger technique. This was performed in the extrathoracic portion of the subclavian vein. Guidewire
was passed. Peel-away sheath was placed and used to advance the lead into the circulation.
Fluoroscopy was used to determine likely anatomic site for left bundle branch pacing. The Winning Pitch C315 sheath was used to deliver the Medtronic 3830 Selectsecure pacing lead with the helix exposed just exposed from the sheath tip during continuous
monitoring when pacemapping the septum during gentle clockwise rotation to obtain a paced QRS morphology of a W pattern in lead V1. Once the suspected optimal site was identified, lead deployment was performed with several rapid rotations as paced
QRS morphology was intermittently monitored until a paced QRS complex in lead V1 demonstrated development of an R wave (qR or rSR). Due to patient's anatomy with enlarged chambers and following several attempts in multiple locations along the RV
septum, adequate pace morphology was not obtained in multiple sites and therefore conduction system pacing was abandoned, lead was withdrawn, and choices made for CS lead placement.
The coronary sinus was intubated with an extended hook outer CS sheath and hydrophilic wire. Initial nonselective venogram demonstrated a very large coronary sinus without definable branches. An attempt at a selective venogram using a balloon
tipped catheter was near occlusive however did not yield distal flow branches. Through the extended hook outer CS sheath, an inner sheath was utilized. On nonselective venogram, flow was seen near the CS ostium at a low lateral branch. A lead was
positioned in this branch over a 0.014 balanced middleweight universal II 190 cm wire through inner sheath. Adequate sensing and pacing parameters were found, and no diaphragmatic stimulation was seen with high-output pacing. All sheaths were split
and the lead was secured to the fascia with Ethibond ties.
The pocket was flushed with antibiotic solution and hemostasis was assured. The chronic generator was explanted and the leads were connected to the new generator and placed inside the pocket. Antibiotic envelope was used. Floseal was applied. The
wound was closed with 3 running layers of absorbable suture, and steri-strips were applied.
Following the procedure, the patient was taken to the recovery area in stable condition.
Contrast used: 60 cc
Fluoroscopy: 58 min; 440.97 mGy; 48.7 DAP
Lead parameters and device programming:
- RA - Plugged/Capped
- RV Lead (Medtronic model: 5076, SN#[id number]): Sensing dependent, Pacing threshold 0.75 V at 0.4 ms, Imp 380 ohm
- LV Lead (Medtronic model: 4798�88, SN#[id number]): Sensing 14.0 mV, Pacing threshold 2.5 V at 0.4 ms (LV2�LV3), Imp 420 ohm
- Device: Medtronic model: W4TR01, SN#[id number], programmed VVI, mode switch on, lower rate 60, upper tracking rate 130 ppm
Explanted device: Medtronic, [id number], serial number: [id number]
Conclusions:
1. Successful upgrade to a biventricular pacemaker with LV Lead (CS)
2. Coronary sinus venography
3. Subclavian venography
4. Pocket Revision
Recommendations:
- Admit
- Chest x-ray picture this evening, [facility] in a.m[facility]
- IV antibiotics while the patient is admitted.
- Follow-up will be arranged for incision check 7-10 days post-discharge
- Okay to resume home medications as indicated
� OK to resume OAC if patient and site stable on 07/29/2024 AM
Fabrizio Cesar DO, [facility]
Clinical Cardiac [employer]
cc: Dr Juanita Hwang; Dr Aleksandr Schwartz
--- NOTE | 2024-07-27 20:05 | PTCARENOTE ---
Pt admitted from cath lab technologist at appox 2000, aaox 3, Dsg left upper chest CDI, VSS. 100% V-paced on the monitor. family at bedside, POC ongoing.
[2024-07-27] MEDS: DUONEB 3 ML INH (21:03)
[2024-07-27] MEDS: FLOMAX 0.4 MG PO (21:37)
[2024-07-27] MEDS: ANCEF 5 IV (21:37)
[2024-07-27] MEDS: CRESTOR 20 MG PO (21:37)
[2024-07-27] MEDS: TYLENOL 650 MG PO (21:37)
[2024-07-27] MEDS: DEMADEX 60 MG PO (21:39)
--- NOTE | 2024-07-27 23:07 | PTCARENOTE ---
F/u CXR obtained, pt resting at this time, no c/o painor no SOB noted.
[2024-07-28 03:25] VITALS: BP 122/71
[2024-07-28 03:36] VITALS: BP 122/71
[2024-07-28 04:38] LABS: Hematocrit 41.6 % (39.0-52.0); Hemoglobin 13.3 g/dL (13.0-18.0); Mean Corpuscular Hgb 28.2 pg (27.0-31.0); Mean Corpuscular Volume 88.1 fL (80.0-94.0); Mean Platelet Volume 10.1 fL (7.4-10.4); Platelet Count 214 10^3/uL (130-400); Red Blood Cell Count 4.72 10^6/uL (4.70-6.10); Red Cell Dist. Width 13.3 % (11.5-14.5); White Blood Cell Count 8.5 10^3/uL (4.8-10.8)
[2024-07-28 05:04] LABS: Blood Urea Nitrogen 35 mg/dl (9-20); Calcium 9.3 mg/dl (8.4-10.2); Carbon Dioxide 28 mmol/L (22-30); Chloride 102 mmol/L (98-107); Estimated Creatinine Clearance 54 ml/min; Glucose 97 mg/dl (70-99); Magnesium 2.5 mg/dl (1.6-2.3); Potassium 4.5 mmol/L (3.5-5.1); Sodium 141 mmol/L (135-145); eGFR > 60.00
[2024-07-28 06:00] VITALS: BMI 35.5
[2024-07-28] MEDS: ANCEF 5 IV (06:12)
[2024-07-28] MEDS: TYLENOL 650 MG PO (06:14)
[2024-07-28 06:59] VITALS: BP 131/68
[2024-07-28] MEDS: DUONEB 3 ML INH (07:12)
[2024-07-28] MEDS: DEMADEX 60 MG PO (08:17)
[2024-07-28] MEDS: ALDACTONE 25 MG PO (08:17)
[2024-07-28] MEDS: PROTONIX 40 MG PO (08:17)
[2024-07-28] MEDS: COZAAR 100 MG PO (08:17)
--- NOTE | 2024-07-28 09:29 | CM ---
Reviewed chart. Met with Mr. Madera to review discharge plans. He states prior to admission he resides with his spouse in a two story home with one step to enter. He states he has a firt floor set-up. He states his spouse is in the early stages
of Parkinson and is planning on having knee surgery on 08/26/24. He states prior to admission he ambulates with a walker and is independent with adls. He states he has two walkers , rollator and single point cane at home. He states he has a
prescription plan with [employer] and uses mail order and [facility]. The discharge plan is to return home with his spouse when medically stable.
--- NOTE | 2024-07-28 10:02 | W.PN.CARDCBS ---
Addendum entered and electronically signed by Umang Sullivan MD 07/28/24 10:31:
Patient seen and examined
Agree with SPRING SETTER note and assessment
Agree with SPRING SETTER plan
Inspected site which is intact with a pressure dressing on. Reviewed chest x-ray which demonstrates appropriate and stable right ventricular and left ventricular lead position
Appropriate ventricular sensing and pacing on telemetry
����Physical Exam
���������������������General:��no apparent distress, not acutely ill
���������������������������Neck:��supple. no meningeal signs. normal psoterior pharynx
������������������������
���������������������������Heart:��s1/s2 regular rate and rhythm, no murmur. equal radial pulses.
��������������������������Lungs: ��no acute respiratory distress. clear bilaterally
����������������������Abdomen:�normal bowel sounds. not tender. no CVAT
��������������������������Neuro:��alert and oriented. no focal neurological deficits
������������������������������Skin: ��no rash
�����������������������Psychiatric:�well kept. interactive and cooperative
�����������������������Extremities:��no edema. no calf tenderness. negative homans. good distal pulses
Impression:
Chronic HFrEF 35-40%
NICMP
post BiV PPM upgrade with new CS lead 07/27/24
Severe MR post COLIN x 2 03/2024
Severe post TAVR
c/b CHB post PPM 06/2023
HTN
HLD
BPH
SUSAN
COPD
Lung cancer post resection
GERD
CKD3
Plan:
post BiV PPM upgrade for depressed EF despite COLIN and GDMT
Resume OAC Eliquis tonight
HF continue spironolactone, Jardiance, torsemide and losartan, unsure why not on BB, will discuss with Dr. Schwartz
Activity restrictions reviewed
Incision check 1 week at [facility]
Resume Eliquis
home today
Original Note:
Today's Communication / Plan
-
post BiV PPM upgrade
stable for d/c home
Impression / Plan
-
PCP: MONICA Mo
CDY: Jesus Manuel Schwartz MD
Impression:
Chronic HFrEF 35-40%
NICMP
post BiV PPM upgrade with new CS lead 07/27/24
Severe MR post COLIN x 2 03/2024
Severe post TAVR
c/b CHB post PPM 06/2023
HTN
HLD
BPH
SUSAN
COPD
Lung cancer post resection
GERD
CKD3
Plan:
post BiV PPM upgrade for depressed EF despite COLIN and GDMT
site stable
CXR no PTX
tele Vpaced
Resume OAC Eliquis tonight
HF continue spironolactone, Jardiance, torsemide and losartan, unsure why not on BB, will discuss with Dr. Schwartz
Activity restrictions reviewed
Incision check 1 week at [facility]
He is out of Eliquis, mail order not arrived, he will obtain samples from [facility] office today
home today
Progress Note - French Folder
Subjective
Date of Service: July 28, 2024
denies cp, sob, mild inc pain
Objective
Labs:
07/28/24 03:51
07/28/24 03:51
Labs
Hgb 13.3 g/dL (13.0-18.0) 07/28/24 03:51
Hct 41.6 % (39.0-52.0) 07/28/24 03:51
Plt Count 214 10^3/uL (130-400) 07/28/24 03:51
Sodium 141 mmol/L (135-145) 07/28/24 03:51
Potassium 4.5 mmol/L (3.5-5.1) 07/28/24 03:51
BUN 35 mg/dl (9-20) H 07/28/24 03:51
Creatinine 1.2 mg/dL (0.7-1.3) 07/28/24 03:51
Glucose 97 mg/dl (70-99) 07/28/24 03:51
Vital Signs and I&O:
Vital Signs
Temp Pulse Resp BP Pulse Ox
98.8 F 61 16 122/71 97
07/28/24 06:59 07/28/24 07:13 07/28/24 07:13 07/28/24 03:36 07/28/24 06:59
Vital Signs
Temp Pulse Resp BP Pulse Ox
98.8 F 61 16 122/71 97
07/28/24 06:59 07/28/24 07:13 07/28/24 07:13 07/28/24 03:36 07/28/24 06:59
Intake & Output
07/26/24 07/27/24 07/28/24 07/29/24
06:59 06:59 06:59 06:59
Intake Total 480 / 480
Output Total 1000 / 1000
Balance -520 / -520
Physical Exam
Physical Exam
NAD< AOX3
S1, S2, RRR
CTAB, non labored
SNTND bsx4 obese
L CW Dressing c/d/i no HT, pressure dressing removed
[2024-07-28 11:12] VITALS: BP 107/64
--- NOTE | 2024-07-28 11:48 | PTCARENOTE ---
Pt received this am with no c/o of pain or sob. Left chest dressing dry and intact, site WNL. Left arm immobilizer intact this am but later removed by FOOD AND BEVERAGE MANAGER. Pt discharged to home with his . Discharge instructions given and reviewed with pt. Pt
verbalized complete understanding and all questions answered.
--- NOTE | 2024-07-28 13:57 | W.DS.TRANS ---
DC Summary - Veterinary Receptionist
-
Discharge Instructions:
Discharge Diagnosis/Procedures BiV PPM upgrade
Diet Low Cholesterol,2 Gram Sodium
Driving Restrictions No driving for 1 week
Bathing Restrictions OK to Shower
Specialty Instructions Weigh Daily
Instructions:
Stand-Alone Forms: DC Inst - Implanted Device
Changes to Home Medications: No
Discharge Medications:
DC Medications w/original date entered in [employer]
ipratropium 0.5 mg-albuterol 3 mg (2.5 mg base)/3 mL nebulization soln 3 ml inhalation TID Lung/Breathing Issues 12/17/23
losartan 25 mg tablet 100 mg PO DAILY Blood Pressure 12/17/23
omeprazole 20 mg capsule,delayed release 20 mg PO DAILY Gastrointestinal Issue 12/17/23
rosuvastatin 20 mg tablet 20 mg PO DAILY High Cholesterol 12/17/23
tamsulosin 0.4 mg capsule 0.4 mg PO DAILY Urinary Issue 12/17/23
torsemide 40 mg tablet 60 mg PO BID Fluid Retention/Swelling 12/17/23
vit C 226 mg-vit E 90 mg-copper 0.8 mg-zinc oxide-lutein 5 mg capsule (PreserVision Lutein) 1 cap PO BID Supplement 12/17/23
acetaminophen 500 mg tablet 1,000 mg PO BID Pain 03/23/24
apixaban 5 mg tablet (Eliquis) 5 mg PO BID Blood Clot Prevention/Tx 03/23/24
multivitamin 1 tab PO DAILY Supplement 03/23/24
spironolactone 25 mg tablet 25 mg PO DAILY Fluid Retention/Swelling 03/23/24
ipratropium bromide 21 mcg (0.03 %) nasal spray 2 spray intranasal BID 07/12/24
empagliflozin 10 mg tablet (Jardiance) 10 mg PO DAILY 07/28/24
Home Medication Changes
Pending Results: No
== END 2024-07-28 11:21 | disposition home or self-care (01) ==
LOC: CATH 11:16
PROVIDERS: Nurse Practitioner Adult Health; ATTENDING PHYSICIAN Internal Medicine Cardiovascular Disease; FAMILY PHYSICIAN Nurse Practitioner; OTHER PHYSICIAN Internal Medicine
DX: I50.22 Chronic systolic (congestive) heart failure (principal); I13.0 Hypertensive heart and chronic kidney disease with heart failure and stage 1 through stage 4 chronic kidney disease, or unspecified chronic kidney disease; I42.8 Other cardiomyopathies; I44.2 Atrioventricular block, complete; I25.10 Atherosclerotic heart disease of native coronary artery without angina pectoris; I48.21 Permanent atrial fibrillation; E66.9 Obesity, unspecified; E78.2 Mixed hyperlipidemia; G47.33 Obstructive sleep apnea (adult) (pediatric); I08.0 Rheumatic disorders of both mitral and aortic valves; J44.9 Chronic obstructive pulmonary disease, unspecified; K21.9 Gastro-esophageal reflux disease without esophagitis; M19.90 Unspecified osteoarthritis, unspecified site; N18.30 Chronic kidney disease, stage 3 unspecified; N40.0 Benign prostatic hyperplasia without lower urinary tract symptoms; Z79.01 Long term (current) use of anticoagulants; Z79.899 Other long term (current) drug therapy; Z85.118 Personal history of other malignant neoplasm of bronchus and lung; Z68.39 Body mass index [BMI] 39.0-39.9, adult; Z87.891 Personal history of nicotine dependence; Z88.5 Allergy status to narcotic agent; Z90.89 Acquired absence of other organs; Z95.2 Presence of prosthetic heart valve; Z96.653 Presence of artificial knee joint, bilateral
CPT/HCPCS: 33225; 33229; 71045; 80048; 83735; 85027; 93005; 94640; C1769; C1887; C1892; C1898; C1900; C2621; Q9967